=== PATIENT | female | born 1980 | race Caucasian/White ===

== ENCOUNTER 2018-10-04 05:30 | Inpatient (IN) ==
[2018-10-04] MEDS ORDERED: ONDANSETRON 4 MG/2 ML VIAL IV STA (05:46)
[2018-10-04] MEDS ORDERED: methylPREDNISolone SOD SUC 125 MG/2 ML VIAL IV STA (05:46)
[2018-10-04] MEDS ORDERED: ALBUTEROL/IPRATROPIUM 3 ML NEB RESP TX STA (05:46)
[2018-10-04] MEDS ORDERED: BICILLIN LA 1,200,000 UNIT/2 ML SYRINGE IM STA (05:50)
[2018-10-04] MEDS ORDERED: hydrALAZINE 20 MG/1 ML VIAL IV STA ×2 (06:12→07:35)
[2018-10-04 06:16] LABS: Basophils % 0.6 % (0.0-0.8); Eosinophils # 0.2 10*3/uL (0.0-0.87); Eosinophils % 3.5 % (0.00-10.9); Hematocrit 41.8 VOL% (35.7-47.0); Hemoglobin 14.2 GM/DL (12.0-16.0); Immature Granulocytes % 0.6 %; Immature Granulocytes Absolute 0.04 #; Lymphocytes # 1.8 10*3/uL (1.4-4.0); Lymphocytes % 25.5 % (21.3-54.2); Mean Corpuscular Hemoglobin 31 PG (27-34); Mean Corpuscular Volume 89.9 FL (87-102); Mean Platelet Volume 9.5 FL (9.6-12.0); Monocytes # 0.6 10*3/uL (0.11-0.8); Monocytes % 8.8 % (1.7-12.7); Neutrophils # 4.2 10*3/uL (1.4-7.4); Platelet Count 247 T/CUMM (130-400); Red Blood Count 4.65 MC/CUMM (3.8-5.5); Red Cell Distribution Width 12.8 % (9.3-17.3); White Blood Count 6.9 T/CUMM (4-12)
[2018-10-04] MEDS ORDERED: CEFTAROLINE 600 MG in SODIUM CHLORIDE 0.9% 100 ML IV STA (06:19)
[2018-10-04 06:33] LABS: INR 0.9
[2018-10-04 06:38] LABS: Albumin 3.8 G/DL (3.4-5.0); Bilirubin,Total 0.8 MG/DL (0.2-1.0); Calcium 8.9 MG/DL (8.5-10.1); Osmolality,Calculated 275.7 MOS/KG (273-304); Total Protein 7.8 G/DL (6.4-8.3)
[2018-10-04] MEDS ORDERED: diphenhydrAMINE CAP 25 MG CAPSULE PO ONE (08:19)
[2018-10-04] MEDS ORDERED: ONDANSETRON 4 MG/2 ML VIAL IV PRN (08:19)
[2018-10-04] MEDS ORDERED: ACETAMINOPHEN 325 MG TABLET PO PRN (08:19)
[2018-10-04] MEDS ORDERED: cloNIDine 0.1 MG TABLET PO ONE (08:19)
[2018-10-04] MEDS ORDERED: SODIUM CHLORIDE 0.9% 1,000 ML IV SCH (08:19)
[2018-10-04] MEDS ORDERED: ALBUTEROL/IPRATROPIUM 3 ML NEB RESP TX PRN (10:02)
[2018-10-04] MEDS ORDERED: LORATADINE 10 MG TABLET PO PRN (10:05)
[2018-10-04] MEDS ORDERED: hydrALAZINE 20 MG/1 ML VIAL IV ONE (10:23)
[2018-10-04] MEDS: DOCUSATE SODIUM 100 MG CAPSULE PO SCH ×2 (12:30→21:48)
[2018-10-04] MEDS: FAMOTIDINE 8 MG/ML 50 ML/BOTTLE PO SCH ×2 (12:30→21:52)
[2018-10-04] MEDS: LORATADINE 10 MG TABLET PO SCH (12:30)
[2018-10-04] MEDS: METOPROLOL TARTRATE 25 MG TABLET PO SCH ×2 (12:30→21:48)
[2018-10-04] MEDS: PANTOPRAZOLE 40 MG TABLET PO SCH (12:30)
[2018-10-04] MEDS: methylPREDNISolone SOD SUC 40 MG/1 ML VIAL IV SCH ×2 (14:41→21:48)
[2018-10-04] MEDS: CEFTAROLINE 600 MG in SODIUM CHLORIDE 0.9% 100 ML IV SCH (18:42)
[2018-10-04] MEDS: cloNIDine 0.1 MG TABLET PO SCH (21:48)
[2018-10-05] MEDS: CEFTAROLINE 600 MG in SODIUM CHLORIDE 0.9% 100 ML IV SCH (06:18)
[2018-10-05] MEDS: methylPREDNISolone SOD SUC 40 MG/1 ML VIAL IV SCH (06:18)
[2018-10-05 08:19] VITALS: BP 139/89
[2018-10-05] MEDS: METOPROLOL TARTRATE 25 MG TABLET PO SCH (08:44)
[2018-10-05] MEDS: DOCUSATE SODIUM 100 MG CAPSULE PO SCH (08:44)
[2018-10-05] MEDS: LORATADINE 10 MG TABLET PO SCH (08:44)
[2018-10-05] MEDS: PANTOPRAZOLE 40 MG TABLET PO SCH (08:44)
[2018-10-05] MEDS: cloNIDine 0.1 MG TABLET PO SCH (08:44)
[2018-10-05] MEDS: FAMOTIDINE 8 MG/ML 50 ML/BOTTLE PO SCH (08:47)
== END 2018-10-05 10:28 | disposition home or self-care (01) | DRG 153 ==
LOC: N.ED 05:30 → N.EDINP 07:31 → N.2W 08:17 → N.5E 09:34
PROVIDERS: ADMIT Family Medicine; ATTEND Family Medicine